=== PATIENT | female | born 1990 | race Hispanic/Latino ===

== ENCOUNTER → 2018-11-04 | Outpatient (REF) | payer OTHER | LOC: M LAB REF 20:43 | PROVIDERS: ATTEND Obstetrics & Gynecology | DX: Z12.4 Encounter for screening for malignant neoplasm of cervix (principal) ==

== ENCOUNTER 2018-11-08 14:21 | Emergency (ER) | payer OTHER ==
[~2018-11-08] VITALS: Ht 149.9 cm; Wt 74.1 kg
[2018-11-08] MEDS ORDERED: antivert (14:27)
[2018-11-08 15:33] LABS: BASO % 0.4 % (0.0-1.0); EOS # 0.2 10^3/uL (0.0-0.50); EOS % 3.2 % (0.0-3.0); HEMATOCRIT 37.6 % (36.0-47.0); HEMOGLOBIN 12.4 g/dl (12.0-15.5); LYMPH % 35.1 % (24.0-44.0); MEAN CORPUSCULAR HEMOGLOBIN 28.8 pg (27.0-33.0); MEAN CORPUSCULAR VOLUME 87.4 fl (80.0-96.0); MONO # 0.5 10^3/uL (0.0-0.8); MONO % 8.4 % (0.0-5.0); NEUTROPHILS % 52.7 % (36.0-66.0); PLATELET COUNT, AUTOMATED 286 10^3/uL (150-450); WHITE BLOOD COUNT 5.6 10^3/uL (4.0-10.0)
[2018-11-08 15:58] LABS: ALBUMIN 3.7 GM/DL (3.2-5.2); ALT/SGPT 31 U/L (12-78); BILIRUBIN,TOTAL 0.5 MG/DL (0.2-1.0); BLOOD UREA NITROGEN 14 MG/DL (7-18); CALCIUM LEVEL 8.7 MG/DL (8.5-10.1); CARBON DIOXIDE LEVEL 27 MEQ/L (21-32); CHLORIDE LEVEL 109 MEQ/L (98-107); CREATININE FOR GFR 0.61 MG/DL (0.55-1.30); GLOMERULAR FILTRATION RATE > 60.0 (>60); GLUCOSE, FASTING 80 MG/DL (70-100); POTASSIUM SERUM 4.2 MEQ/L (3.5-5.1); SODIUM LEVEL 141 MEQ/L (136-145); TOTAL PROTEIN 6.7 GM/DL (6.4-8.2)
--- NOTE | 2018-11-08 16:37 | REP ---
CT Head without contrast HISTORY: Vertigo COMPARISON: None There is no intraparenchymal hemorrhage, acute infarct, mass or midline shift. The ventricular system is normal in appearance. There is no extra cerebral collection. There is no fracture. Mucosal thickening is present in the left ethmoid sinus. IMPRESSION: There is no intracranial lesion. Electronically Signed by Kahlil Rajput MD 11/08/2018 04:28 P
[2018-11-08] MEDS ORDERED: MECL-68 PO (17:05)
[2018-11-08] MEDS ORDERED: ONDA4TAB6 PO (17:05)
[2018-11-08 17:12] VITALS: BP 107/69
--- NOTE | 2018-11-08 19:59 | ECGEPIP ---
Stationary ECG Study [facility] - ED Test Date: 2018-11-08 Pat Name: NENA ALEXANDRA Department: Room: - Gender: F [employer]: RYLEY : 1990 Requested By: Yamile Rogers Order Number: [id number] Reading MD: Yamile Rogers Measurements Intervals [place] Rate: 51 P: 63 NM: 135 QRS: 35 QRSD: 90 T: 28 QT: 459 QTc: 427 Interpretive Statements SINUS BRADYCARDIA NO PRIOR FOR COMPARISON Electronically Signed On 11-08-2018 19:59:34 EDT by Yamile Rogers
== END 2018-11-08 17:14 | disposition home or self-care (01) ==
LOC: M ED 14:21
DX: H81.10 Benign paroxysmal vertigo, unspecified ear (principal); R00.1 Bradycardia, unspecified; Z79.899 Other long term (current) drug therapy

== ENCOUNTER → 2018-12-11 | Outpatient (REF) | payer OTHER ==
[~2018-12-11] MED LIST: MECL-68 PO; ONDA4TAB6 PO; antivert
[2018-12-11 17:58] LABS: HCG, SERUM QUALITATIVE POSITIVE (NEGATIVE)
[2018-12-11 19:18] LABS: HCG, SERUM QUANTITATIVE 47 MIU/ML
== END ==
LOC: M LAB REF 16:52
PROVIDERS: ATTEND Physician Assistant
DX: N91.2 Amenorrhea, unspecified (principal)

== ENCOUNTER → 2018-12-16 | Outpatient (CLI) | payer OTHER | LOC: M LRY 12:33 | PROVIDERS: ATTEND Obstetrics & Gynecology | DX: Z32.01 Encounter for pregnancy test, result positive (principal) ==

== ENCOUNTER → 2019-01-14 | Outpatient (CLI) | payer OTHER ==
[2019-01-14 13:26] LABS: BASO % 0.3 % (0.0-1.0); EOS # 0.1 10^3/uL (0.0-0.50); EOS % 2.2 % (0.0-3.0); HEMATOCRIT 38.2 % (36.0-47.0); HEMOGLOBIN 12.9 g/dl (12.0-15.5); LYMPH # 1.2 10^3/uL (1.5-6.5); LYMPH % 19.7 % (24.0-44.0); MEAN CORPUSCULAR HEMOGLOBIN 29.8 pg (27.0-33.0); MEAN CORPUSCULAR HGB CONC 33.8 g/dl (32.0-36.5); MEAN CORPUSCULAR VOLUME 88.2 fl (80.0-96.0); MONO # 0.4 10^3/uL (0.0-0.8); MONO % 5.7 % (0.0-5.0); NEUTROPHILS # 4.5 10^3/uL (1.8-7.7); NEUTROPHILS % 71.6 % (36.0-66.0); PLATELET COUNT, AUTOMATED 272 10^3/uL (150-450); RED BLOOD COUNT 4.33 10^6/uL (4.00-5.40); WHITE BLOOD COUNT 6.3 10^3/uL (4.0-10.0)
[2019-01-14 15:59] LABS: CHLAMYDIA DNA AMPLIFICATION NEGATIVE (NEGATIVE); GC DNA AMPLIFICATION NEGATIVE (NEGATIVE)
[2019-01-15 11:30] LABS: HEPATITIS C VIRUS ABY INDEX 0.1 INDEX (<0.8); HIV 1&2 SCREEN CENTAUR NEGATIVE (NEGATIVE); RUBELLA IgG QUALITATIVE IMMUNE (IMMUNE)
== END ==
LOC: M SMT 11:47
PROVIDERS: ATTEND Obstetrics & Gynecology
DX: Z34.82 Encounter for supervision of other normal pregnancy, second trimester (principal); Z3A.00 Weeks of gestation of pregnancy not specified

== ENCOUNTER → 2019-02-14 | Outpatient (CLI) | payer OTHER | LOC: M SMT 15:20 | PROVIDERS: ATTEND Obstetrics & Gynecology | DX: Z34.81 Encounter for supervision of other normal pregnancy, first trimester (principal); Z3A.00 Weeks of gestation of pregnancy not specified ==

== ENCOUNTER → 2019-03-28 | Outpatient (CLI) | payer OTHER ==
--- NOTE | 2019-03-28 18:49 | REP ---
HISTORY: anatomy. COMPARISON: None. Multiple ultrasonographic images of the uterus show a single living intrauterine gestation in a transverse head to maternal left position. Doppler interrogation of the heart shows a heart rate of 139 beats per minute. The placenta is posterior and not low lying. The subjective amniotic fluid volume is within normal limits. The cervix measures 3.8 cm in length and is closed. BPD 4.4 cm = 19 weeks 3 days HC 16.9 cm = 19 weeks 4 days AC 15.4 cm = 20 weeks 4 days FL 3.1 cm = 19 weeks 3 days The estimated weight is 325 grams, which is at the 68th percentile for a 19 week 3 day gestational age. Structures visualized as unremarkable are as follows: Thalami, cavum septum pellucidum, cerebellum, cisterna magna, kidneys, urinary bladder, three vessel umbilical cord, upper lip, four chamber heart, right and left ventricular outflow tracts, stomach, and upper and lower extremities. The structures suboptimally visualized today are as follows: Cord insertion and spine. IMPRESSION: Single living intrauterine gestation as described above with an estimated gestational age of 19 weeks 5 days via composite criteria and an estimated date of delivery of 08/17/2019 by today's exam. No anomalies were detected, however, I recommend a followup examination to visualize those structures not well seen today as described above. Electronically Signed by Everette Joseph DO 03/28/2019 07:41 P
== END ==
LOC: M RAD 15:55
PROVIDERS: ATTEND Obstetrics & Gynecology
DX: Z34.82 Encounter for supervision of other normal pregnancy, second trimester (principal); Z3A.19 19 weeks gestation of pregnancy

== ENCOUNTER → 2019-05-01 | Outpatient (CLI) | payer OTHER ==
--- NOTE | 2019-05-02 04:44 | REP ---
Clinical: Anatomical evaluation. Comparison: 03/28/2019 . Findings: Examination demonstrates a single live intrauterine in cephalic presentation. motion is identified by technologist. Placenta is noted posterior and grade I without evidence for placenta previa or abruption. Amniotic fluid volume is normal. Cervix measures 4.2 cm in length and appears closed. No evidence for nuchal cord. Gestational age by LMP 24 weeks 2 days with FANG 08/19/2019 . Gestational age by current measurements 24 weeks 4 day with FANG 08/17/2019 . FHR equals 133 beats per minute. Estimated weight 730 grams ( 57 percentile). Anatomical assessment demonstrates normal structures including cranium, choroid plexus, cavum, cerebellum/posterior fossa, lungs,diaphragm, stomach, cord insertion/three-vessel cord, kidneys/bladder, and extremities. Limited evaluation of the spine again noted. Impression: 1. single live intrauterine in cephalic presentation demonstrating appropriate interval growth. 2. Limited evaluation of the spine. Remainder of the anatomical assessment is complete and normal. Electronically Signed by Honorio Gilbert MD 05/02/2019 04:35 A
== END ==
LOC: M RAD 07:56
PROVIDERS: ATTEND Obstetrics & Gynecology
DX: Z34.82 Encounter for supervision of other normal pregnancy, second trimester (principal); Z36.89 Encounter for other specified antenatal screening; Z3A.24 24 weeks gestation of pregnancy

== ENCOUNTER → 2019-05-19 | Outpatient (CLI) | payer OTHER ==
[2019-05-19 12:01] LABS: HEMOGLOBIN 12.1 g/dl (12.0-15.5); MEAN CORPUSCULAR HEMOGLOBIN 31.3 pg (27.0-33.0); MEAN CORPUSCULAR HGB CONC 32.7 g/dl (32.0-36.5); MEAN CORPUSCULAR VOLUME 95.6 fl (80.0-96.0); PLATELET COUNT, AUTOMATED 231 10^3/uL (150-450); RED BLOOD COUNT 3.87 10^6/uL (4.00-5.40); WHITE BLOOD COUNT 8.8 10^3/uL (4.0-10.0)
== END ==
LOC: M SMT 08:10
PROVIDERS: ATTEND Obstetrics & Gynecology
DX: Z34.82 Encounter for supervision of other normal pregnancy, second trimester (principal); Z3A.00 Weeks of gestation of pregnancy not specified

== ENCOUNTER → 2019-05-23 | Outpatient (CLI) | payer OTHER ==
--- NOTE | 2019-05-24 08:33 | REP ---
Obstetric ultrasound for anatomy follow-up: On the prior study of March 28 2019 and the cord insertion and spine could not be optimally demonstrated because of position. On the next followup study of May 01, 2019. The cord insertion, was adequately demonstrated and unremarkable. The spine again could not be optimally demonstrated. On the study today the spine is optimally demonstrated and unremarkable. The remainder of the anatomy is unremarkable as previously. There are no anomalies. There is a single intrauterine gestation. position is variable. heart rate is 134 beats per minute. The placenta is posterior. There is no placenta previa or abruptio. The placenta is grade 1. Subjectively the amniotic fluid volume is normal. The amniotic fluid index is 19.2/9.5 - 22.7. Gestational age by today's ultrasound is 28 weeks 1 day/FANG 08/14/2019. Gestational age by the first ultrasound is 27 weeks 5 days/FANG 08/17/2019. Gestational age by LMP is 27 weeks 3 days/FANG 08/19/2019. weight is 1169 grams/2 pounds, 9 ounces. This is the 59th percentile for 27 weeks 3 days. Umbilical artery Doppler assessment: S/D ratio 4.04 (2.30-3.30) Resistive Index 0.75 (0.59-0.75 Diastolic Velocity 7.2 (>10 cm/sec) Electronically Signed by Kael Caicedo MD 05/24/2019 08:24 A
== END ==
LOC: M RAD 17:50
PROVIDERS: ATTEND Obstetrics & Gynecology
DX: O34.219 Maternal care for unspecified type scar from previous cesarean delivery (principal); Z3A.27 27 weeks gestation of pregnancy

== ENCOUNTER → 2019-06-04 | Outpatient (CLI) | payer OTHER ==
[2019-06-04 13:53] LABS: ALBUMIN 2.7 GM/DL (3.2-5.2); ALT/SGPT 32 U/L (12-78); BILIRUBIN,TOTAL 0.3 MG/DL (0.2-1.0); BLOOD UREA NITROGEN 10 MG/DL (7-18); CALCIUM LEVEL 8.7 MG/DL (8.5-10.1); CARBON DIOXIDE LEVEL 23 MEQ/L (21-32); CHLORIDE LEVEL 110 MEQ/L (98-107); CREATININE FOR GFR 0.48 MG/DL (0.55-1.30); GLOMERULAR FILTRATION RATE > 60.0 (>60); GLUCOSE, FASTING 71 MG/DL (70-100); POTASSIUM SERUM 4.1 MEQ/L (3.5-5.1); SODIUM LEVEL 140 MEQ/L (136-145); TOTAL PROTEIN 6.1 GM/DL (6.4-8.2)
== END ==
LOC: M SMT 11:55
PROVIDERS: ATTEND Obstetrics & Gynecology
DX: O26.93 Pregnancy related conditions, unspecified, third trimester (principal); Z3A.00 Weeks of gestation of pregnancy not specified

== ENCOUNTER 2019-06-10 19:43 | Emergency (ER) | payer OTHER ==
[~2019-06-10] VITALS: Ht 149.9 cm; Wt 78.2 kg
[2019-06-10] MEDS ORDERED: PRENMIS3 PO (19:50)
[2019-06-10 21:33] LABS: BASO % 0.2 % (0.0-1.0); EOS # 0.1 10^3/uL (0.0-0.5); EOS % 1.5 % (0.0-3.0); HEMATOCRIT 35.5 % (36.0-47.0); LYMPH # 2.2 10^3/uL (1.5-5.0); LYMPH % 24.8 % (24.0-44.0); MEAN CORPUSCULAR HEMOGLOBIN 30.8 pg (27.0-33.0); MEAN CORPUSCULAR HGB CONC 33.8 g/dl (32.0-36.5); MEAN CORPUSCULAR VOLUME 91.3 fl (80.0-96.0); MONO # 0.5 10^3/uL (0.0-0.8); MONO % 5.5 % (0.0-5.0); NEUTROPHILS # 5.9 10^3/uL (1.5-8.5); NEUTROPHILS % 67.4 % (36.0-66.0); PLATELET COUNT, AUTOMATED 256 10^3/uL (150-450); RED BLOOD COUNT 3.89 10^6/uL (4.00-5.40); WHITE BLOOD COUNT 8.8 10^3/uL (4.0-10.0)
[2019-06-10 21:55] LABS: ALBUMIN 2.7 GM/DL (3.2-5.2); ALT/SGPT 31 U/L (12-78); BILIRUBIN,DIRECT < 0.1 MG/DL (0.0-0.2); BILIRUBIN,TOTAL 0.3 MG/DL (0.2-1.0); BLOOD UREA NITROGEN 10 MG/DL (7-18); CALCIUM LEVEL 8.5 MG/DL (8.5-10.1); CARBON DIOXIDE LEVEL 23 MEQ/L (21-32); CHLORIDE LEVEL 110 MEQ/L (98-107); CK-MB VALUE MASS 1.1 NG/ML (<3.6); CPK CREATINE PHOSPHOKINASE 53 U/L (26-192); GLOMERULAR FILTRATION RATE > 60.0 (>60); GLUCOSE, FASTING 81 MG/DL (70-100); MB/CK RELATIVE INDEX 2.08 (< OR =4); POTASSIUM SERUM 3.8 MEQ/L (3.5-5.1); SODIUM LEVEL 141 MEQ/L (136-145); TOTAL PROTEIN 6.1 GM/DL (6.4-8.2); TROPONIN I < 0.02 NG/ML (< 0.10)
[2019-06-10 22:33] VITALS: BP 117/76
--- NOTE | 2019-06-11 08:55 | ECGEPIP ---
[facility] - ED Test Date: 2019-06-10 Pat Name: NENA ORTIZ Department: Room: - Gender: Female Single [employer] Operator: : 1990 Requested By: BIRGIT Herrera PA-C Order Number: [id number] Reading MD: Lance Dockery Measurements Intervals [place] Rate: 118 P: 50 WI: 100 QRS: 24 QRSD: 84 T: 2 QT: 340 QTc: 477 Interpretive Statements SINUS TACHYCARDIA WITH SHORT WI INTERVAL RATE CHANGE COMPARED TO 11/08/18 Electronically Signed on 06-11-2019 8:55:16 EST by Lance Dockery
== END 2019-06-10 22:36 | disposition home or self-care (01) ==
LOC: M ED 19:43
DX: F41.9 Anxiety disorder, unspecified (principal); Z33.1 Pregnant state, incidental

== ENCOUNTER 2019-07-20 20:31 | Emergency (ER) | payer OTHER ==
[~2019-07-20] VITALS: Ht 149.9 cm; Wt 78.2 kg
[~2019-07-20 20:31] MED LIST changes: +PRENMIS3 PO
[2019-07-20] MEDS ORDERED: ADACEL/BOOSTRIX VACCINE (DIPHTH/PERTUSS/ACELL/TETANUS)0.5ML SYR (90715) IM ONE (21:15)
[2019-07-20] MEDS ORDERED: LIDOCAINE 2% MDV 20 ML VIAL SC ONE (21:15)
[2019-07-20 22:32] VITALS: BP 119/85
== END 2019-07-20 22:33 | disposition home or self-care (01) ==
LOC: M ED 20:31
DX: O9A.213 Injury, poisoning and certain other consequences of external causes complicating pregnancy, third trimester (principal); S61.412A Laceration without foreign body of left hand, initial encounter; W26.0XXA Contact with knife, initial encounter; Y92.009 Unspecified place in unspecified non-institutional (private) residence as the place of occurrence of the external cause; Y93.89 Activity, other specified; Y99.8 Other external cause status; Z3A.35 35 weeks gestation of pregnancy

== ENCOUNTER → 2019-07-22 | Outpatient (CLI) | payer OTHER | LOC: M PLALAB 11:29 | PROVIDERS: ATTEND Advanced Practice Midwife | DX: Z34.93 Encounter for supervision of normal pregnancy, unspecified, third trimester (principal); Z3A.00 Weeks of gestation of pregnancy not specified ==

== ENCOUNTER 2019-08-18 19:32 | Outpatient (CLI) | payer OTHER ==
[~2019-08-18] VITALS: Ht 149.9 cm; Wt 80.3 kg
[~2019-08-18 19:32] MED LIST changes: -MECL-68 PO; +MECL1TAB31 PO
[2019-08-18 20:21] VITALS: BP 121/74
--- NOTE | 2019-08-18 20:37 | IPNPDOC ---
Text Note Date of Service The patient was seen on 08/18/19. NOTE Subjective: Patient is a at 39.5 weeks gestationwith an FANG of 08/20/19 based off of her 1st trimester ultrasound. She initiated care in her first trimester with AWP. Her has been complicated by 2 prior sections. She reports she is very motivated to have a vaginal delivery. She has been counseled multiple times during her course of risks, benefits, and alternatives and that if she desires a TOLAC she needs to come into l&D in active labor. If she doesn't go into spontaneous labor she has a scheduled section with a BTL on 08/27/19. She presents tonight with complaints of contractions. She denies any leaking of fluid or vaginal bleeding or bloody show. She reports active movement. The patient reports her contractions started at 5 pm tonight. She states that she doesn't know what contractions feel like but she is having some abdominal tightening in the front of her abdomen. She states she desires a TOLAC. Patient states she desires to go home if she isn't in active labor. Allergies: oxycodone Current medication: none Past medical history: No current problems; history of abnormal pap smear Surgical history: tummy tuck, breast lift, liposuction, removal of mass from left breast, section x2. Family history: diabetes, HTN, heart disease, asthma, dementia, Alzheimer. Social History: . History of chlamydia and HPV. She denies history of abuse. Denies being a smoker. Denies drug use or abuse or alcohol use or abuse. Objective: VS: see below. FHR: 130, moderate variability, positive accelerations, no decelerations. Contractions: every 3 to 6 minutes. A+Ox3. Respiratory rate is regular with no use of accessory muscles. Abdomen gravid, soft and non-tender to touch. SVE: closed, thick, anterior, no show. Assessment: IUP at 39.5 weeks, not in active labor, prior section x2 and desires TOLAC Plan: Extensive education done with patient on active labor signs, abruption signs, preeclamptic signs, kick count, spontaneous rupture of membranes, and danger signs to report. Patient and discharged to home per their request. She is to follow-up with her routine care. VS,Declan, I+O VS, Fishbone, I+O Vital Signs Label Value Date Time Patient Temperature 97.8 degrees F 08/18/192020 Patient Temperature 97.8 degrees F 08/18/192020 Temperature Source Temporal 08/18/192020 Pulse 86 08/18/192020 Respiratory Rate 18 bpm 08/18/192020 Blood Pressure Assessment 121/74 (90) 08/18/192020 Source Automatic Cuff (NIBP) BENI RITTER CNM Aug 18, 2019 20:37
== END 2019-08-18 20:15 | disposition home or self-care (01) ==
LOC: M LDO 19:32
PROVIDERS: ATTEND Advanced Practice Midwife
DX: O34.211 Maternal care for low transverse scar from previous cesarean delivery (principal); Z3A.39 39 weeks gestation of pregnancy; Z88.5 Allergy status to narcotic agent
CPT/HCPCS: 59025; G0378; G0463

== ENCOUNTER 2019-08-26 09:19 | Outpatient (CLI) | payer OTHER ==
[~2019-08-26] VITALS: Ht 149.9 cm; Wt 82.1 kg
[2019-08-26 09:29] VITALS: BP 100/68
[2019-08-26 10:37] VITALS: BP 138/87
[2019-08-26 10:39] VITALS: BP 125/82
== END 2019-08-26 10:46 | disposition home or self-care (01) ==
LOC: M LDO 09:19
PROVIDERS: ATTEND Obstetrics & Gynecology
DX: O47.1 False labor at or after 37 completed weeks of gestation (principal); Z3A.40 40 weeks gestation of pregnancy; Z88.5 Allergy status to narcotic agent
CPT/HCPCS: 59025; G0378; G0463

== ENCOUNTER 2019-08-28 20:31 | Inpatient (IN) | payer OTHER ==
[~2019-08-28] VITALS: Ht 149.9 cm; Wt 82.2 kg
--- NOTE | 2019-08-28 21:35 | HPE ---
DATE OF ADMISSION: 08/28/2019 28-year-old, 4, para 2-0-1-2 female at 41-1/7 weeks gestation by a 6 week ultrasound and estimated date of confinement (EDC) of 08/20/2019, presents with regular contractions every 3-5 minutes for the entire day. The contractions have increased in intensity. She has contracted on and off for several days. She has a history of two prior sections and desires a trial of labor with this . She denies vaginal bleeding. COURSE: The patient's care has been through [facility] in [place]. She was specifically counseled about the risks of trial of labor after (TOLAC) after two sections including risk of uterine rupture and poor outcomes. OBSTETRICAL HISTORY: Prior section times two, prior spontaneous (SAB) times one. MEDICAL HISTORY: Noncontributory. SURGICAL HISTORY: 1. section times two. 2. Tummy tuck. 3. Breast lift. 4. Liposuction. 5. Biopsy of left breast. ALLERGIES: None. SOCIAL HISTORY: The patient lives at [place]. The father of the baby is involved. She is . She denies cigarettes, alcohol, or drug use. FAMILY HISTORY: Noncontributory. PHYSICAL EXAMINATION: Blood pressure 125/78, pulse 84. She appears comfortable. HEAD and NECK EXAM: Normal. LUNGS: Clear. HEART: Regular rate and rhythm. ABDOMEN: Nontender, gravid, heart tones category 1. STERILE VAGINAL EXAM: 3 cm, 90%, -2, posterior, soft, vertex. EXTREMITIES: Nontender. LABORATORY DATA: GBS negative, HIV negative. ASSESSMENT: 28-year-old, 4, para 2 female at 41-1/7 weeks gestation, history of prior section times two, presents in early labor. PLAN: Patient is admitted on 08/28/2019. Plan to allow natural labor to continue. Plan close monitoring due to history of two prior sections.
[2019-08-28 21:40] LABS: HEMATOCRIT 34.9 % (36.0-47.0); HEMOGLOBIN 11.8 g/dl (12.0-15.5); MEAN CORPUSCULAR HEMOGLOBIN 30.3 pg (27.0-33.0); MEAN CORPUSCULAR HGB CONC 33.8 g/dl (32.0-36.5); MEAN CORPUSCULAR VOLUME 89.5 fl (80.0-96.0); PLATELET COUNT, AUTOMATED 217 10^3/uL (150-450); WHITE BLOOD COUNT 7.9 10^3/uL (4.0-10.0)
[2019-08-28 22:48] VITALS: BP 124/75
[2019-08-29] VITALS (30 sets, daily range): BP systolic 91–120; BP diastolic 50–82
[2019-08-29] MEDS ORDERED: FENTANYL 2MCG/ML ROPIVACAINE 0.2% IN 0.9% NACL 100ML IVBAG As Ordered ONE ×3 (01:02→20:37)
[2019-08-29] MEDS ORDERED: ePHEDrine SULFATE 25 MG/5 ML(5MG/ML) SYRINGE As Ordered ONE (02:58)
[2019-08-29] MEDS ORDERED: ePHEDrine SULFATE 25 MG/5 ML(5MG/ML) SYRINGE IV PRN (03:30)
[2019-08-29] MEDS ORDERED: ONDANSETRON 4MG/2ML VIAL (J2405) IV PRN (03:30)
[2019-08-29] MEDS ORDERED: LACTATED RINGER'S 1000 ML IV PRN (03:30)
[2019-08-29] MEDS ORDERED: EPIDURAL COMMENT XX SCH (03:30)
[2019-08-29] MEDS ORDERED: REFRIGERATOR IV KEYS XX PRN (03:30)
[2019-08-29] MEDS ORDERED: diphenhydrAMINE INJ 50MG/ML VIAL (J1200) IV PRN (03:30)
[2019-08-29] MEDS ORDERED: NALOXONE INJ 0.4 MG/1 ML VIAL (J2310) IV PRN (03:30)
[2019-08-29] MEDS ORDERED: EPIDURAL/PCA KEYS XX PRN (03:30)
[2019-08-29] MEDS: FENTANYL/ROPIVACAINE/NACL BAG 100 ML EPIDURAL SCH ×3 (07:15→20:39)
--- NOTE | 2019-08-29 09:09 | IPNPDOC ---
Text Note Date of Service The patient was seen on 08/29/19. NOTE Progress Subjective: Patient resting comfortably in bed, pain well controlled with epidural. Reports positive movement, denies leakage of fluid. Objective: Alert and oriented x3. FHR 140s, moderate variability, accelerations present, decelerations absent. Contractions moderate to palpation every 2.5-4 minutes. SVE 6/90/-1 with AROM of clear fluid. FSE placed. Bloody show noted. Assessment: heart rate category 1, spontaneous labor, epidural infusing Plan: Continue labor support. IV fluids at 125 ml/hr. Turcios catheter in place. Anticipate cervical change and successful . Dr. Morris and Dr. Bermudez present in the building and aware of patient status. C/S as appropriate. VS,Fishbone, I+O VS, Fishbone, I+O Laboratory Tests 08/28/19 21:30 Vital Signs Date Time Temp Pulse Resp B/P (MAP) Pulse Ox O2 Delivery O2 Flow Rate FiO2 08/29/19 08:14 86 16 96/61 (73) 08/29/19 07:08 98.6 Libby Pringle CNM Aug 29, 2019 09:09
--- NOTE | 2019-08-29 09:55 | IPNPDOC ---
Text Note Date of Service The patient was seen on 08/29/19. NOTE Progress Consulted Dr Bermudez. Low dose pitocin augmentation ordered per protocol. Dr Bermudez is in house. Anticipate successful . VS,Fishbone, I+O VS, Fishbone, I+O Laboratory Tests 08/28/19 21:30 Vital Signs Date Time Temp Pulse Resp B/P (MAP) Pulse Ox O2 Delivery O2 Flow Rate FiO2 08/29/19 09:36 72 18 93/50 (64) 08/29/19 07:08 98.6 Libby Pringle CNM Aug 29, 2019 09:55
[2019-08-29] MEDS ORDERED: OXYTOCIN DRIP 30 UNITS in IV 1 EA IV SCH ×2 (10:00→23:53)
[2019-08-29] MEDS ORDERED: ACETAMINOPHEN 500 MG TAB PO PRN (10:00)
--- NOTE | 2019-08-29 13:48 | IPNPDOC ---
Text Note Date of Service The patient was seen on 08/29/19. NOTE Progress Pitocin @ 4mu UC 2-4 minutes FH decel to 100's x 4 minutes with brief dip to 70's that resolved with position change, IV bolus and O2 SVE by another provider 2 Continue low dose pitocin. Will update Declan Turner, I+O VSDeclan I+O Laboratory Tests 08/28/19 21:30 Vital Signs Date Time Temp Pulse Resp B/P (MAP) Pulse Ox O2 Delivery O2 Flow Rate FiO2 08/29/19 13:19 85 16 108/67 (81) 08/29/19 12:25 98.0 08/29/19 11:19 Room Air 08/29/19 10:55 97 Libby Pringle CNM Aug 29, 2019 13:48
[2019-08-29] MEDS: LR 1,000 ML IV SCH ×2 (13:53→17:06)
--- NOTE | 2019-08-29 16:55 | IPNPDOC ---
Text Note Date of Service The patient was seen on 08/29/19. NOTE Progress Dr Bermudez present and aware of pt status Pitocin @ 4mu Cat I tracing UC 2-4 minute x 60+ seconds, strong SVE 890/-1, essentially unchanged IUPC placed. Will increase pitocin and reevaluate in a few hours. VS,Fishbone, I+O VS, Fishbone, I+O Laboratory Tests 08/28/19 21:30 Vital Signs Date Time Temp Pulse Resp B/P (MAP) Pulse Ox O2 Delivery O2 Flow Rate FiO2 08/29/19 15:52 98.5 68 16 101/54 (70) 97 Room Air Libby Pringle CNM Aug 29, 2019 16:55
[2019-08-29] MEDS ORDERED: BICITRA 30ML SOLN UDC PO ONE (21:45)
[2019-08-29] MEDS ORDERED: ceFAZolin SOD 2 GM in IV 1 EA IV ONE (21:45)
[2019-08-29] MEDS ORDERED: AZITHROMYCIN INJ 500 MG, VIAL MATE ADAPTER 1 EACH in D5W 250 ML IV ONE (21:45)
[2019-08-30] VITALS (10 sets, daily range): BP systolic 110–120; BP diastolic 62–77
[2019-08-30] MEDS ORDERED: MEASLES,MUMPS,RUBELLA VACCINE INJ (MMR-II) (90707) SC SCH
[2019-08-30] MEDS ORDERED: RHOGAM 300 MCG (1500 IU) INJ (J2790) IM SCH
[2019-08-30] MEDS ORDERED: ACETAMINOPHEN 500 MG TAB PO PRN
[2019-08-30] MEDS ORDERED: NORCO, ANEXSIA 5/325MG TABLET (HYDROcodone/ACETAMINOPHEN) PO PRN ×2
[2019-08-30] MEDS ORDERED: KETOROLAC 30 MG/ML VIAL (J1885) IV SCH
[2019-08-30] MEDS ORDERED: ONDANSETRON 4 MG ORAL DISINTEGRATING TAB (Q0162 PER 1MG) PO PRN
[2019-08-30] MEDS ORDERED: OXYTOCIN 30 UNITS IN 0.9% NaCl 500ML IV BAG (J2590) As Ordered ONE (00:06)
[2019-08-30] MEDS ORDERED: ONDANSETRON 4MG/2ML VIAL (J2405) IV PRN ×2 (00:30)
[2019-08-30] MEDS ORDERED: fentaNYL 100 MCG/2 ML INJECTION (J3010) IV PRN (00:30)
[2019-08-30] MEDS ORDERED: NORCO, ANEXSIA 5/325MG TABLET (HYDROcodone/ACETAMINOPHEN) As Ordered ONE (00:40)
[2019-08-30] MEDS: NALBUPHINE HCL 10 MG/ML AMP (J2300) IV PRN ×2 (00:50→00:55)
[2019-08-30] MEDS ORDERED: NALBUPHINE HCL 10 MG/ML AMP (J2300) As Ordered ONE (01:01)
[2019-08-30] MEDS: LR 1,000 ML IV SCH ×2 (04:19→07:53)
[2019-08-30] MEDS: KETOROLAC 30 MG/ML VIAL (J1885) IV SCH ×3 (06:57→18:41)
[2019-08-30 07:53] LABS: HEMATOCRIT 26.8 % (36.0-47.0); MEAN CORPUSCULAR HEMOGLOBIN 30.1 pg (27.0-33.0); MEAN CORPUSCULAR HGB CONC 33.2 g/dl (32.0-36.5); MEAN CORPUSCULAR VOLUME 90.5 fl (80.0-96.0); PLATELET COUNT, AUTOMATED 152 10^3/uL (150-450); RED BLOOD COUNT 2.96 10^6/uL (4.00-5.40); WHITE BLOOD COUNT 10.6 10^3/uL (4.0-10.0)
[2019-08-30 08:06] LABS: HEMOGLOBIN 8.9 g/dl (12.0-15.5)
[2019-08-30] MEDS: PRENATAL VITAMINS CHEWABLE TABLET PO SCH (09:00)
[2019-08-30] MEDS: DOCUSATE SODIUM 100 MG CAP PO SCH ×2 (09:00→20:59)
[2019-08-31 02:00] VITALS: BP 115/64
[2019-08-31] MEDS: IBUPROFEN 800 MG TAB PO SCH ×2 (02:26→10:41)
[2019-08-31 06:00] VITALS: BP 111/67
[2019-08-31 06:59] LABS: HEMATOCRIT 27.6 % (36.0-47.0); HEMOGLOBIN 9.1 g/dl (12.0-15.5); MEAN CORPUSCULAR HEMOGLOBIN 29.8 pg (27.0-33.0); MEAN CORPUSCULAR VOLUME 90.5 fl (80.0-96.0); PLATELET COUNT, AUTOMATED 163 10^3/uL (150-450); RED BLOOD COUNT 3.05 10^6/uL (4.00-5.40); WHITE BLOOD COUNT 11.6 10^3/uL (4.0-10.0)
[2019-08-31] MEDS ORDERED: IBUP80TA PO (10:13)
[2019-08-31] MEDS ORDERED: HYDR-3715 PO (10:13)
[2019-08-31] MEDS ORDERED: DOCU100C16 PO (10:13)
[2019-08-31] MEDS: PRENATAL VITAMINS CHEWABLE TABLET PO SCH (10:41)
[2019-08-31] MEDS: DOCUSATE SODIUM 100 MG CAP PO SCH (10:41)
== END 2019-08-31 13:35 | disposition home or self-care (01) | DRG 773 ==
LOC: M LDO 20:31 → M LDI 21:12 → M OBS 08-30 01:41
PROVIDERS: ADMIT Specialist; ATTEND Specialist
PROC: 10D00Z1 Extraction of Products of Conception, Low, Open Approach (ICD-10-PCS; principal; 2019-08-29 22:12)
DX: O48.0 Post-term pregnancy (principal); Z37.0 Single live birth; Z3A.41 41 weeks gestation of pregnancy; O34.211 Maternal care for low transverse scar from previous cesarean delivery

== ENCOUNTER → 2019-10-30 | Outpatient (REF) | payer OTHER ==
[~2019-10-30] MED LIST changes: +DOCU100C16 PO; +HYDR-3715 PO; +IBUP80TA PO
== END ==
LOC: M SFHCWAGY 16:56
PROVIDERS: ATTEND Advanced Practice Midwife
DX: Z09 Encounter for follow-up examination after completed treatment for conditions other than malignant neoplasm (principal)

== ENCOUNTER → 2019-10-30 | Outpatient (CLI) | payer OTHER ==
--- NOTE | 2019-10-31 03:12 | REP ---
Clinical: Wound drainage. Evaluate for abscess. Technique: Real time boucher scale and color evaluation using linear high frequency transducer. Findings: Directed ultrasound examination overlying the midline section scar demonstrates a complex hyperemic ill-defined collection to the right side of the scar measuring 2.0 x 2.3 x 2.0 cm which may represent ill-defined/forming abscess. A single hyperemic lymph node is also noted measuring 15 x 6 x 11 mm. Surrounding edema. Impression: Findings suggest forming abscess along the right side of the scar.
== END ==
LOC: M WHC 15:34
PROVIDERS: ATTEND Advanced Practice Midwife
DX: Z09 Encounter for follow-up examination after completed treatment for conditions other than malignant neoplasm (principal)
CPT/HCPCS: 76857; 87070; 87077; 87186; G0463

== ENCOUNTER → 2019-11-07 | Outpatient (CLI) | payer OTHER ==
--- NOTE | 2019-11-08 08:15 | REP ---
REASON FOR EXAM: Followup. Ultrasonography of the anterior abdominal wall adjacent to a cicatrix was performed in the same fashion as the prior exam. The 2 x 2 x 2.3 cm sized suspected developing abscess on the prior exam has gotten smaller and today the area measures 1.2 x 1.5 x 1.7 cm. There are no other significant changes from the prior exam. IMPRESSION: There has been some improvement as described above.
== END ==
LOC: M WHC 14:01
PROVIDERS: ATTEND Obstetrics & Gynecology
DX: Z51.89 Encounter for other specified aftercare (principal)

== ENCOUNTER → 2019-11-11 | Outpatient (CLI) | payer OTHER | LOC: M LABSMTC 11:46 | PROVIDERS: ATTEND Family Medicine | DX: Z11.59 Encounter for screening for other viral diseases (principal); Z20.89 Contact with and (suspected) exposure to other communicable diseases ==

== ENCOUNTER → 2019-11-18 | Outpatient (CLI) | payer OTHER ==
--- NOTE | 2019-11-18 14:37 | REP ---
REASON: Followup. Comparison exam is 11/07/2019. The incisional/paraincisional nodular suspected developing abscess seen on the prior exam which measured 1.2 x 1.5 x 1.7 cm is again seen today and is essentially unchanged. In addition, there is a new area but to the left of the midline which measures 7 mm and is hypoechoic with poorly defined margins. This is adjacent to a normal appearing 1.9 cm sized lymph node. There are other normal lymph nodes, which were imaged today. IMPRESSION: 1. No significant change in the known right-sided suspected developing abscess at the level of the cicatrix. 2. Small but new area of decreased echoes to the left of the midline adjacent to the cicatrix as described above. Continue followup is suggested.
== END ==
LOC: M WHC 13:33
PROVIDERS: ATTEND Obstetrics & Gynecology
DX: T81.89XA Other complications of procedures, not elsewhere classified, initial encounter (principal)

== ENCOUNTER → 2019-11-18 | Outpatient (REF) | payer OTHER | LOC: M SFHCWAGY 17:00 → EEVIPCON 17:00 | PROVIDERS: ATTEND Obstetrics & Gynecology | DX: L92.9 Granulomatous disorder of the skin and subcutaneous tissue, unspecified (principal); T81.89XD Other complications of procedures, not elsewhere classified, subsequent encounter; L08.9 Local infection of the skin and subcutaneous tissue, unspecified ==

== ENCOUNTER → 2019-12-05 | Outpatient (CLI) | payer OTHER ==
[~2019-12-05] MED LIST changes: +GASTROGRAFIN SOLUTION 30ML (Q9963) As Ordered ONE; +ISOVUE-370 76% 100ML VIAL As Ordered ONE; +TYLETAB14 PO
--- NOTE | 2019-12-05 11:19 | REP ---
CT ABDOMEN AND PELVIS WITH ORAL AND IV CONTRAST: TECHNIQUE: Axial contrast enhanced images from the lung bases to the pubic symphysis using 100 mL Isovue-370 intravenous contrast material with multiplanar reformations. Visualized lung bases are clear. The liver, spleen, adrenals, pancreas and kidneys are unremarkable in appearance. There is no abdominal aortic aneurysm. There is no adenopathy. There is no free air or free fluid. There is no bowel wall thickening. The appendix is normal. No pelvic mass is seen. Urinary bladder is mildly distended and appears grossly unremarkable. In the anterior wall of the pelvis, more so to the right of midline, there is ill-defined thickening of the muscles of the anterior pelvic wall extending into the superficial soft tissues. This appears to represent phlegmonous and inflammatory change. I do not see a drainable abscess. No fistula is seen. Nonenlarged lymph nodes are seen in the adjacent soft tissues, in the subcutaneous fat. The visualized osseous structures are unremarkable. IMPRESSION: Inflammatory and phlegmonous change in the anterior wall of the pelvis, more so on the right. No drainable abscess. No evidence of fistula. Electronically Signed by Kael Daly MD 12/05/2019 11:25 A
== END ==
LOC: M RAD 08:18
PROVIDERS: ATTEND Obstetrics & Gynecology
DX: T14.8XXD Other injury of unspecified body region, subsequent encounter (principal)
CPT/HCPCS: 74177; Q9963; Q9967

== ENCOUNTER → 2019-12-06 | Outpatient (CLI) | payer OTHER ==
[~2019-12-06] MED LIST changes: -GASTROGRAFIN SOLUTION 30ML (Q9963) As Ordered ONE; -ISOVUE-370 76% 100ML VIAL As Ordered ONE
== END ==
LOC: M LABSMTC 10:14
PROVIDERS: ATTEND Anesthesiology
DX: Z01.812 Encounter for preprocedural laboratory examination (principal); Z11.59 Encounter for screening for other viral diseases

== ENCOUNTER 2019-12-09 15:00 | Day surgery (SDC) | payer OTHER ==
[~2019-12-09] VITALS: Ht 147.3 cm; Wt 73.5 kg
[~2019-12-09 15:00] MED LIST changes: -TYLETAB14 PO
[2019-12-09] MEDS ORDERED: LR 1,000 ML IV SCH ×3 (16:30→18:45)
[2019-12-09] MEDS ORDERED: MIDAZOLAM INJ 2MG/2ML VIAL (J2250 PER 1MG) As Ordered ONE (16:40)
[2019-12-09] MEDS ORDERED: fentaNYL 100 MCG/2 ML INJECTION (J3010) As Ordered ONE (16:40)
[2019-12-09] MEDS ORDERED: ONDANSETRON 4MG/2ML VIAL As Ordered ONE (16:42)
[2019-12-09] MEDS ORDERED: LIDOCAINE 2% 100MG/5ML SDV (FOR ANES.) As Ordered ONE (16:42)
[2019-12-09] MEDS ORDERED: dexameTHASONE 4 MG/ML 1ML VIAL (J1100 PER 1MG) As Ordered ONE (16:42)
[2019-12-09] MEDS ORDERED: propofoL 200 MG/20 ML VIAL As Ordered ONE ×2 (16:42→17:35)
[2019-12-09] MEDS ORDERED: SILVER NITRATE APPLICATOR As Ordered ONE (16:51)
[2019-12-09] MEDS ORDERED: ACETAMINOPHEN 650 MG SUPP As Ordered ONE (16:51)
[2019-12-09] MEDS ORDERED: BUPIVACAINE/EPIN 0.25% 30 ML VIAL As Ordered ONE (16:51)
[2019-12-09] MEDS ORDERED: VANCOMYCIN HCL 1,000 MG, VIAL MATE ADAPTER 1 EACH in D5W 250 ML IV ONE (17:00)
[2019-12-09] MEDS ORDERED: ACETAMINOPHEN 1000MG 100ML IV BTL (OFIRMEV) (J0131 PER 10MG) As Ordered ONE (17:27)
[2019-12-09] MEDS ORDERED: KETOROLAC 60 MG/2 ML VIAL As Ordered ONE (17:29)
[2019-12-09] MEDS ORDERED: KETOROLAC 30 MG/ML 1ML VIAL IV PRN (18:11)
[2019-12-09] MEDS ORDERED: fentaNYL 100 MCG/2 ML INJECTION (J3010) IV PRN (18:45)
[2019-12-09] MEDS ORDERED: ONDANSETRON 4MG/2ML VIAL IV PRN (18:45)
[2019-12-09] MEDS ORDERED: METOCLOPRAMIDE INJ 10MG/2ML VIAL (J2765 PER 1) IV PRN (18:45)
[2019-12-09] MEDS ORDERED: NORCO, ANEXSIA 5/325MG TABLET (HYDROcodone/ACETAMINOPHEN) PO PRN (18:45)
[2019-12-09] MEDS ORDERED: IBUP80TA PO (19:11)
[2019-12-09] MEDS ORDERED: TYLETAB14 PO (19:13)
[2019-12-09] MEDS ORDERED: ACETAMINOPH W/CODEINE #3 TAB UD As Ordered ONE (19:54)
[2019-12-09 20:15] VITALS: BP 113/86
[2019-12-09] MEDS ORDERED: ACETAMINOPH W/CODEINE #3 TAB UD PO SCH (20:15)
== END 2019-12-09 20:26 | disposition home or self-care (01) ==
LOC: M SDC 15:00
PROVIDERS: ATTEND Obstetrics & Gynecology
DX: L90.5 Scar conditions and fibrosis of skin (principal); Z88.5 Allergy status to narcotic agent
CPT/HCPCS: 13101; 81025; 87070; 87075; 87077; 87186; 87205; 88302; J0131; J1100; J1885; J2250; J2405; J3010; J3370